=== PATIENT | male | born 1955 | race Caucasian/White ===

== ENCOUNTER 2020-10-18 05:14 | Emergency (ER) | payer MEDICARE, BC ==
[~2020-10-18] VITALS: Ht 185.4 cm; Wt 140.9 kg
[2020-10-18] MEDS ORDERED: HYDROcodone/acetaminophen 5mg/325mg tablet PO ONE (05:25)
[2020-10-18] MEDS ORDERED: diazepam 5mg tablet PO ONE (05:25)
[2020-10-18] MEDS ORDERED: dexamethasone 4mg tablet PO ONE (05:25)
[2020-10-18] MEDS ORDERED: ondansetron 4mg rapidly disintigrating tab PO ONE (05:25)
[2020-10-18] MEDS ORDERED: PRED20TA PO (05:50)
[2020-10-18] MEDS ORDERED: DIAZ-351 PO (05:50)
[2020-10-18] MEDS ORDERED: METH-360 PO (05:50)
[2020-10-18 06:03] VITALS: BP 169/91
== END 2020-10-18 06:06 | disposition home or self-care (01) ==
LOC: ER 05:14
DX: G89.29 Other chronic pain (principal); M54.41 Lumbago with sciatica, right side; Z79.899 Other long term (current) drug therapy
CPT/HCPCS: 99283

== ENCOUNTER 2021-10-09 19:12 | Emergency (ER) | payer BC, MEDICARE ==
[~2021-10-09] VITALS: Ht 185.4 cm; Wt 145.4 kg
[~2021-10-09 19:12] MED LIST: DIAZ-351 PO; METH-360 PO
[2021-10-09] MEDS ORDERED: cephalexin 500mg capsule PO ONE (19:55)
[2021-10-09] MEDS ORDERED: CEPH-585 PO (22:14)
[2021-10-09 22:22] VITALS: BP 162/83
== END 2021-10-09 22:29 | disposition home or self-care (01) ==
LOC: ER 19:12
DX: L03.032 Cellulitis of left toe (principal); M79.672 Pain in left foot; J44.9 Chronic obstructive pulmonary disease, unspecified; E11.9 Type 2 diabetes mellitus without complications; Z79.2 Long term (current) use of antibiotics; Z79.899 Other long term (current) drug therapy
CPT/HCPCS: 93922; 93925; 99284